=== PATIENT | male | born 1970 | race Caucasian/White ===

== ENCOUNTER 2019-05-18 03:14 | Emergency (ER) | payer SELFPAY ==
[~2019-05-18] VITALS: Ht 177.8 cm; Wt 79.9 kg
--- NOTE | 2019-05-18 03:28 | NUR ---
ASSESSMENT MADE. CHART UP FOR MD TO SEE. RASH ALL OVER BODY X 2 DAYS. NOW RIGHT ARM SWOLLEN.
--- NOTE | 2019-05-18 03:47 | NUR ---
ERP at bedside.
[2019-05-18] MEDS ORDERED: DIPHENHYDRAMINE 25 MG CAPSULE ONE (04:07)
--- NOTE | 2019-05-18 04:15 | NUR ---
PATIENT TOO SLEEPY WHILE MEDICATING.
[2019-05-18] MEDS ORDERED: DIPHENHYDRAMINE 25 MG CAPSULE PO ONE (04:30)
--- NOTE | 2019-05-18 04:57 | NUR ---
PATIENT DISCHARGED WITH PRESCRIPTION AND INSTRUCTION. VERBALIZED UNDERSTANDING.
[2019-05-18 05:05] VITALS: BP 100/56
== END 2019-05-18 05:07 | disposition home or self-care (01) ==
LOC: ED 05:01
DX: L20.84 Intrinsic (allergic) eczema (principal); L30.9 Dermatitis, unspecified; F17.200 Nicotine dependence, unspecified, uncomplicated
CPT/HCPCS: 99283; J7512; Q0163